=== PATIENT | female | born 1960 | race Hispanic/Latino ===

== ENCOUNTER 2017-07-02 06:46 | Day surgery (SDC) | payer OTHER ==
[2017-07-02] MEDS ORDERED: NACL BACTERIOSTATIC INFILTRATI ONE (07:23)
[2017-07-02] MEDS ORDERED: XYLOCAINE 1% 20 mL ONE (07:34)
[2017-07-02] MEDS ORDERED: MARCAINE 0.25% INFILTRATI ONE ×2 (07:34→09:23)
--- NOTE | 2017-07-02 07:47 | Anesthesia Day of Surgery ---
Anesthesia Day of Surgery - Day of Surgery Patient Examined: Yes Patient H&P Reviewed: Yes Patient is NPO: Yes
--- NOTE | 2017-07-02 07:47 | Anesthesia Consultation ---
Anesthesia Consult and Med Hx Date of service: 07/02/17 - Airway Anesthetic Teeth Evaluation: Good ROM Head & Neck: Adequate Mental/Hyoid Distance: Adequate Mallampati Class: Class II Intubation Access Assessment: Good - Pulmonary Exam CTA: Yes - Cardiac Exam Cardiac Exam: RRR - Pre-Operative Health Status ASA Pre-Surgery Classification: ASA2 Proposed Anesthetic Plan: General (Hx PONV) - Pulmonary Hx Smoking: Yes (for 30 years quit 8 years ago) - Central Nervous System Hx Psychiatric Problems: Yes - Endocrine Hx Non-Insulin Dependent Diabetes: Yes (takes metformin) - Other Systems Hx Alcohol Use: Yes (occas. - once a month) Hx Substance Use: No Hx Cancer: No
[2017-07-02] MEDS ORDERED: XYLOCAINE 2% INFILTRATI ONE (07:51)
[2017-07-02] MEDS ORDERED: ANCEF/STERILE WATER 2 GM/20 ML IV NR (08:00)
[2017-07-02] MEDS ORDERED: VERSED IV NR (08:00)
[2017-07-02] MEDS ORDERED: NACL 0.9% 1000 ML 1,000 ML IV SCH (08:00)
[2017-07-02] MEDS ORDERED: TRANSDERM-SCOP TD NR (08:00)
[2017-07-02] MEDS ORDERED: PEPCID IV NR (08:00)
[2017-07-02] MEDS ORDERED: DILAUDID ONE (08:32)
[2017-07-02] MEDS ORDERED: DIPRIVAN 10 MG/ML IV ONE (08:32)
[2017-07-02] MEDS ORDERED: DECADRON ONE (08:33)
[2017-07-02] MEDS ORDERED: XYLOCAINE MPF 2% ONE (08:33)
[2017-07-02] MEDS ORDERED: ZOFRAN ONE (08:33)
--- NOTE | 2017-07-02 08:48 | Procedure Note ---
Date of procedure: 07/02/17 Pre-op diagnosis: lt. breast lesion Post-op diagnosis: same Procedure: needle loc Findings: n/a Anesthesia: local Surgeon: WAQAS ARELLANO Estimated blood loss: none Pathology: none Condition: stable Disposition: same day
--- NOTE | 2017-07-02 08:56 | Mammography Report ---
Left breast needle localization: Patient presents with a biopsy marker in the retroareolar region. A lateral approach was utilized under mammographic grid technique. The skin was cleansed and 1% lidocaine used for local anesthesia. A 5 cm Sanford needle was introduced adjacent to the marker confirmed with mammography. A wire was then introduced with removal of the needle. Additional mammography confirm positioning of the wire. The patient had a vasovagal response during the procedure with full recovery.
[2017-07-02] MEDS ORDERED: DILAUDID IV PRN (09:17)
[2017-07-02] MEDS ORDERED: XYLOCAINE 1% 20 mL INFILTRATI ONE (09:23)
[2017-07-02] MEDS ORDERED: WATER FOR IRRIG STERILE IR ONE (09:23)
[2017-07-02] MEDS ORDERED: ZOFRAN IV PRN (09:30)
[2017-07-02] MEDS ORDERED: PERCOCET 5/325 PO PRN (10:00)
--- NOTE | 2017-07-02 10:28 | Mammography Report ---
Operative specimen mammogram: A single tissue specimen is submitted it includes the targeted marker and localizing wire.
--- NOTE | 2017-07-02 10:49 | Short Stay Summary ---
Short Stay Documentation Date of service: 07/02/17 - History H&P: obtained from office - Allergies and Medications Current Medications: Allergies No Known Allergies Allergy (Verified 06/27/17 15:00) Home Medications Medication Instructions Recorded Confirmed Last Taken Type metFORMIN [Glucophage] 500 mg PO QDAY 06/27/17 07/02/17 07/01/17 History HYDROcodone/APAP 5-325 [[place] 1 each PO Q6HR PRN #30 tablet 07/02/17 Unknown Rx 5/325] Active Medications Cefazolin Sodium (Ancef/Sterile Water 2 Gm/20 Ml) 2 gm IV PREOP NR Stop: 07/02/17 12:00 Famotidine (Pepcid) 20 mg IV PREOP NR Stop: 07/02/17 21:00 Last Admin: 07/02/17 09:18 Dose: 20 mg Hydromorphone HCl (Dilaudid) 0.5 mg IV Q10MIN PRN PRN Reason: Severe Pain Stop: 07/02/17 13:00 Sodium Chloride (Nacl 0.9% 1000 Ml) 1,000 mls @ 125 mls/hr IV DIRECT GRETEL Stop: 07/02/17 21:00 Last Admin: 07/02/17 09:15 Dose: 125 mls/hr Midazolam HCl (Versed) 2 mg IV PREOP NR Stop: 07/02/17 21:00 Last Admin: 07/02/17 09:20 Dose: 2 mg Ondansetron HCl (Zofran) 4 mg IV ONCE PRN PRN Reason: Nausea And Vomiting Stop: 07/02/17 12:00 Scopolamine (Transderm-Scop) 1 each TD PREOP NR Stop: 07/02/17 21:00 Last Admin: 07/02/17 09:17 Dose: 1 each - Brief post op/procedure progress note Date of procedure: 07/02/17 Pre-op diagnosis: Left breast papilloma of the upper outer quadrant Post-op diagnosis: same Procedure: Left needle localization excisional biopsy Anesthesia: GETA Findings: Wire and clip present within radiograph specimen Surgeon: KRISTINA BRODERICK Estimated blood loss: minimal Pathology: list (left excisional biopsy) Specimen disposition: to lab Condition: stable - Disposition Condition at discharge: Good Disposition: DC-01 TO HOME OR SELFCARE Short Stay Discharge Plan Activity: other (no heavy lifting) Diet: regular Wound: other (keep incision clean and dry and may shower in 24 hours; no baths, pools or lakes; do not rub or scrub incision) Follow up with: KALI BROWNE MD [Primary Care Provider] - 7 Days KRISTINA BRDOERICK MD [Staff Physician] - 7 Days Prescriptions: HYDROcodone/APAP 5-325 [[place] 5/325] 1 each PO Q6HR PRN #30 tablet PRN Reason: Pain
--- NOTE | 2017-07-02 11:00 | Operative Report ---
Operative Report Operative Report: Date of Service: July 02, 2017 Preoperative diagnosis: Left breast papilloma of the upper outer quadrant Postoperative diagnosis: Same Procedure: Left breast needle localization excisional biopsy of upper outer quadrant papilloma Surgeon: Giovanna Kidd MD Anesthesia: General Findings: Wire and clip present within radiograph specimen Complications: None EBL: Minimal Disposition: PACU in good condition Indications for operative procedure: This is a 57-year-old lady with recent left breast needle core biopsy performed at an outside hospital with findings of a sclerosed intraductal papilloma. Recommendations were to proceed with an excisional biopsy. Patient wished to proceed with the above procedure. Procedure in detail. Radiology placed wire to localize area of concern. The patient was taken to the operating room and she was laid supine. General anesthesia was administered. The left breast was prepped and draped in the normal sterile operative fashion. The wire was identified. Timeout was performed. A lateral periareolar incision was made with 15 blade and dissection taken down to the subcutaneous tissues. The wire was removed from the lateral skin. First began raising of the superior flap follwed by raising of the inferior flap, then medial flap and lateral flap. Area of concern was appropriately removed with the aid of the Bovie cautery. The wire was not encountered. Radiograph specimen with clip and wire present. Hemostasis was obtained. The subcutaneous tissues were approximated and closed using interrupted 3-0 Vicryl. The skin brought together and closed using a running 4- 0 Monocryl followed by skin affix. She tolerated surgery very well and was awaken from anesthesia without any complications and transported to PACU in good condition.
--- NOTE | 2017-07-02 11:04 | Post Anesthesia Evaluation ---
- Post Anesthesia Evaluation Patient Participated: Yes Airway Patent: Yes Stable Respiratory Function: Yes Nausea/Vomiting: No Temp > 96.8F: Yes Pain Manageable: Yes Adequeate Hydration: Yes Anesthesia Complications: No
[2017-07-02 12:22] VITALS: BP 133/75
== END 2017-07-02 12:22 | disposition home or self-care (01) ==
LOC: OR 06:46 → EDBD 15:45
PROVIDERS: ATTEND Surgery
DX: D24.2 Benign neoplasm of left breast (principal); N60.12 Diffuse cystic mastopathy of left breast; N60.22 Fibroadenosis of left breast; E11.9 Type 2 diabetes mellitus without complications; Z90.710 Acquired absence of both cervix and uterus; Z79.84 Long term (current) use of oral hypoglycemic drugs; Z87.891 Personal history of nicotine dependence
CPT/HCPCS: 19125; 19281; 76098; 82962; 88307; J0690; J1100; J1170; J2250; J2405; J2704; J7030

== ENCOUNTER 2017-11-12 09:16 | Outpatient (CLI) | payer OTHER ==
--- NOTE | 2017-11-12 09:43 | XRay Report ---
LEFT SHOULDER: Pain. Routine views demonstrate normal bony and soft tissue structures with normal joint alignment of the shoulder. IMPRESSION: Normal study.
== END 2017-11-12 09:17 | disposition home or self-care (01) ==
LOC: SPVIMAG 09:16
PROVIDERS: ATTEND Orthopaedic Surgery
DX: M25.512 Pain in left shoulder (principal)